=== PATIENT | male | born 1995 | race Caucasian/White ===

== ENCOUNTER 2021-01-08 10:14 | Emergency (ER) | payer SELFPAY ==
--- NOTE | 2021-01-08 10:15 | RT.EKG_ITS ---
APPROVED REPORT Exam: Resting ECG Reason for Exam: chest pain Patient Location: E HR:53 bpm ECG Measurements Heart Rate 53 AXIS MA 146 P 52 QRSd 96 QRS 94 QT 390 T 58 QTc 365 Conclusion Sinus bradycardia...rate< 60
[2021-01-08 10:23] VITALS: BP 112/61; PULSE 61; RESP 16; TEMP 36.1; O2SAT 97
--- NOTE | 2021-01-08 10:55 | W.ED.GENAD ---
Discharge Plan Disposition Patient Disposition: HOME Condition: Stable Discharge Details Clinical Impression: Cough Primary Care Provider: Unknown,Unknown ED Provider: Mor John Home Meds and New Rx's Prescriptions: No Action No Known Home Meds RF: 0 Discharge Instructions Instructions: Acute Cough (ED) Additional Instructions: Your examination is reassuring, you do not have a fever, your lungs are clear, and your oxygen levels are normal. I would strongly recommend that you discontinue vaping. I would also strongly recommend that you continue getting vaccinated. I will test you for Covid, this test typically takes approximately 2-3 days to be resulted and would recommend quarantining until that time. You cannot contract the coronavirus from your girlfriends recent vaccination. Please watch for new or worsening symptoms and return to the ER for any concerns. Otherwise I recommend reaching out your primary care provider Medical Decision Making This is a 25-year-old male, currently vapes daily, concerned that he may have contracted the coronavirus on from his girlfriend after she received the J&J vaccine on . He reports a dry cough, when he coughs he has chest pain and back pain. Otherwise he is asymptomatic. Reports that his work is requiring a Covid test to return to work. He has not taken any medication [id number] for his symptoms. Clinically he appears well, nontoxic, afebrile, O2 sats 97% on room air, lungs clear to auscultation. He speaks in full sentences and does not cough during my HPI or examination. Extremely low suspicion for pneumonia, do not believe a chest x-ray is indicated. We did discuss that he cannot contract the coronavirus from his significant other vaccination, he denies any known exposures. Patient is not vaccinated, and does not want to become vaccinated. Will obtain a Covid send swab. Given his initial presentation of what he described as chest discomfort, an EKG was ordered per protocol however after evaluating the patient extremely low suspicion for ACS, PE, etc. Lab Data Labs: Covid swab pending ECG Data Attestation: I personally reviewed and interpreted this ECG (s) as follows: Interpretation: Please see official report by Dr. Pride. Bradycardia, ventricular rate of 53. No STEMI. HPI General Mode of arrival: ambulatory. Date/Time Provider Initiated Documentation: 01/08/21 10:26. Limitations to Documentation: no limitations. Information obtained by: patient. HPI Narrative: This is a 25-year-old male, current vapes daily, denies significant past medical history, presenting to the ER today requesting a Covid test. Patient states that his girlfriend received the J&J vaccine on , was told that there was a small amount of virus in the vaccine, and he is concerned that because he was with her all day and Sunday that he may have contracted the virus. He reports a dry cough and when he coughs which is worse at night, he has pain in his chest and back. He has not been able to go to work the last 2 days. He denies headache, fever, productive cough, shortness of breath, abdominal pain, nausea, vomiting, pain or swelling in his legs. He has not taken any [id number] medications for his symptoms. Patient has no additional questions or concerns. He is not personally vaccinated and he is not interested in getting vaccinated. Related Data Home Medications Medication Instructions Recorded Confirmed Unknown [No Known Home Meds] 01/08/21 01/08/21 Allergies Allergy/AdvReac Type Severity Reaction Status Date / Time No Known Allergies Allergy Unverified 01/08/21 10:28 General Stated Complaint: RespSymp IGOR: 4 Review of Systems Constitutional Constitutional: Denies fever(s) and Denies headache(s) ENT Ears, Nose, Mouth, and Throat: Denies headache(s), Denies nasal congestion and Denies sore throat Cardiovascular Cardiovascular: Reports chest pain and Denies dyspnea Respiratory Respiratory: Reports cough and Denies dyspnea Gastrointestinal Gastrointestinal: Denies abdominal pain, Denies nausea and Denies vomiting Musculoskeletal Musculoskeletal: Reports back pain Integumentary/Breasts Skin/Breast: Denies rash Neurologic Neurologic: Denies headache(s) [facility] Social History Smoking/Tobacco Use Status: Current every day Tobacco Type: e-cigarettes Smoking risk assessment performed?: Yes Drug use: Daily Substance use type: marijuana Exam Const General: cooperative, healthy appearing, comfortable and no acute distress Orientation: alert, awake and oriented x3 HENMT Head: normal to inspection, normocephalic and atraumatic Mouth: moist mucous membranes Eyes General: appearance normal, both eyes and all related structures Conjunctivae: conjunctivae normal Neck Neck: normal visual inspection, full ROM, no meningeal signs, trachea midline and supple Resp Effort & Inspection: normal respiratory effort and able to speak in complete sentences Auscultation: clear to auscultation bilaterally Cardio Rate: regular rate Rhythm: regular rhythm Skin General skin exam: no rashes or lesions noted Neuro General: patient alert, patient awake, patient oriented x3, moves all extremities and no focal motor deficits Cognition: normal cognition Speech: speech normal Gait: normal gait Sensory Exam: no sensory deficits noted Extrem General: normal to inspection, full ROM, no pedal edema and no calf tenderness Psych Appearance: grossly normal Mental Status: mental status grossly normal Course Vital Signs Vital signs: Vital Signs Temperature 36.1 C L 01/08/21 10:23 Pulse 61 01/08/21 10:23 Respiratory Rate 16 01/08/21 10:23 Blood Pressure 112/61 01/08/21 10:23 Pulse Oximetry 97 01/08/21 10:23 Temperature 36.1 C L 01/08/21 10:23 Temperature Source Temporal Artery Scan 01/08/21 10:23 Pulse 61 01/08/21 10:23 Respiratory Rate 16 01/08/21 10:23 Respiratory Effort Non-Labored 01/08/21 10:29 Respiratory Depth Normal 01/08/21 10:29 Blood Pressure 112/61 01/08/21 10:23 Blood Pressure Position Sitting 01/08/21 10:23 Pulse Oximetry 97 01/08/21 10:23 Oxygen Delivery Method Room Air 01/08/21 10:23 Oxygen Flow Rate 0 01/08/21 10:23 Pain Level 4 01/08/21 10:23
[2021-01-09 15:03] LABS: COVID-19 RT-PCR UVMMC Result Negative (Negative)
--- NOTE | 2021-01-14 10:57 | NUR.NOTE ---
negative covid relayed to pt via phone-pt called for results.Nursing Note:
== END 2021-01-08 11:05 | disposition home or self-care (01) ==
PROVIDERS: Emergency Provider Physician Assistant
DX: R05.9 Cough, unspecified (principal); R07.9 Chest pain, unspecified; Z20.822 Contact with and (suspected) exposure to COVID-19
CPT/HCPCS: 93005; 99283; U0003; 93010

== ENCOUNTER 2021-10-09 08:51 | Emergency (ER) | payer SELFPAY ==
[2021-10-09 09:11] VITALS: BP 126/66; PULSE 88; RESP 16; TEMP 36.7; O2SAT 95
--- NOTE | 2021-10-09 09:17 | ED.GENADUL_ITS ---
Discharge Plan Disposition Patient Disposition: HOME Condition: Improving Discharge Details Clinical Impression: Acute bronchitis with bronchospasm Primary Care Provider: Unknown,Unknown ED Provider: Mark Goncalves Home Meds and New Rx's Prescriptions: New doxycycline hyclate 100 mg capsule 100 mg PO BID 10 Days Qty: 20 0RF prednisone 50 mg tablet 50 mg PO DAILY 5 Days Qty: 5 0RF Discharge Instructions Instructions: Acute Bronchitis (ED) Additional Instructions: You need to decrease use of both smoke and inhaled products. Prednisone once daily until finished. Take the antibiotic doxycycline until finished as well. This medication may make your skin sensitive to bright sunlight. Return to ER for worsening difficulty breathing, development of high persistent fever, or any other acute concerns Medical Decision Making 26-year-old male with 2 to 3 days of cough, congestion, production of sputum. He uses both nicotine vape as well as smokes marijuana. He was around some sick children and took a home COVID test which was negative. He has had a history of using inhalers with previous upper respiratory infections but no ongoing wheeze or difficulty breathing. On exam he is oxygenating normally, speaking in full sentences, does demonstrate slight end expiratory wheeze bilaterally. He is not systemically ill. Do feel he needs to decrease his use of vaping and marijuana. He will benefit from the anti-inflammatory effects of a small burst of steroid, a course of antibiotic, and use of inhaler as needed at home. He understands to avoid nicotine and marijuana products moving forward. HPI General Mode of arrival: ambulatory . Date/Time Provider Initiated Documentation: 10/09/21 08:53 . Limitations to Documentation: no limitations . Information obtained by: patient . History of Present Illness 26 year old M presents to the emergency department with the chief complaint of Cough and posttussive emesis, described as moderate, Quality is described as dull and constant, and is localized to the chest. Patient reports no radiation. Patient started experiencing this minute(s) and it has been constant. No relieving factors improve symptom(s), No exacerbating factors reported . Patient notes cough; denies shortness of breath. Patient did receive the following treatments prior to arrival, none Related Data Home Medications Medication Instructions Recorded Confirmed doxycycline hyclate 100 mg capsule 100 mg PO BID 10 days #20 caps 10/09/21 prednisone 50 mg tablet 50 mg PO DAILY 5 days #5 tabs 10/09/21 Previous Rx's Medication Instructions Recorded doxycycline hyclate 100 mg capsule 100 mg PO BID 10 days #20 caps 10/09/21 prednisone 50 mg tablet 50 mg PO DAILY 5 days #5 tabs 10/09/21 Allergies Allergy/AdvReac Type Severity Reaction Status Date / Time No Known Allergies Allergy Unverified 10/09/21 09:16 General Stated Complaint: Nausea/Vomit/Diar IGOR: 3 Review of Systems Narrative: No chest pain, no syncope, no fever. Smokes marijuana PFSH All Active Problems (Updated 10/09/21 @ 09:27 by Mark Goncalves MD) Cough (Acute) Acute bronchitis with bronchospasm (Acute) Social History Smoking/Tobacco Use Status: Current every day Tobacco Type: e-cigarettes Smoking risk assessment performed?: Yes Drug use: Daily Substance use type: marijuana Do you feel safe at home: Yes Do you feel safe in your relationship?: Yes Exam Narrative Exam Narrative: GEN: awake, alert, oriented 3. Pleasant, well groomed, interactive. HEAD: Normocephalic, atraumatic ENT: Mucous membranes moist, oropharynx unremarkable, External ear exam unremarkable EYES: PERRL, EOMI NECK: Full ROM, no HARSHIL, no menigismus CHEST/RESP: Nontender, faint end expiratory wheeze scattered bilaterally CARDIOVASCULAR: RRR, no murmur, rub dat. 2+ Rad pulse bilateral ABDOMEN: Soft, nontender, no mass. +Bowel sounds EXT: Full ROM, no edema, no rash Neuro: Grossly normal neurologic exam, conversant, interactive. Psych: Speech fluent, thoughts congruent, affect normal Course Vital Signs Vital signs: Vital Signs Temperature 36.7 C 10/09/21 09:11 Pulse 88 10/09/21 09:11 Respiratory Rate 16 10/09/21 09:11 Blood Pressure 126/66 10/09/21 09:11 Pulse Oximetry 95 10/09/21 09:11 Temperature 36.7 C 10/09/21 09:11 Temperature Source Temporal Artery Scan 10/09/21 09:11 Pulse 88 10/09/21 09:11 Respiratory Rate 16 10/09/21 09:11 Respiratory Effort 10/09/21 09:16 Blood Pressure 126/66 10/09/21 09:11 Blood Pressure Position Sitting 10/09/21 09:11 Pulse Oximetry 95 08/14/22 09:11 Oxygen Delivery Method Room Air 10/09/21 09:11 Oxygen Flow Rate 0 10/09/21 09:11 Pain Level 0 10/09/21 09:11 Comment 10/09/21 09:11
[2021-10-09] MEDS: Albuterol HFA 8 GM 60 PUFF INH IH (09:44)
[2021-10-09] MEDS: predniSONE 20 MG TAB 60 MG PO (09:45)
== END 2021-10-09 09:53 | disposition home or self-care (01) ==
PROVIDERS: Emergency Provider Emergency Medicine
DX: J20.9 Acute bronchitis, unspecified (principal)
CPT/HCPCS: 99283; J7512

== ENCOUNTER 2022-03-08 05:26 | Emergency (ER) | payer SELFPAY ==
[2022-03-08 05:30] VITALS: BP 131/56; PULSE 50; RESP 18; TEMP 35.9; O2SAT 96
--- NOTE | 2022-03-08 05:37 | W.ED.GENAD ---
Discharge Plan Disposition Patient Disposition: Home Condition: Good Discharge Details Clinical Impression: Postoperative nausea and vomiting Primary Care Provider: Unknown,Unknown ED Provider: Luis Guzman Home Meds and New Rx's Prescriptions: New ondansetron 4 mg tablet,disintegrating 4 mg PO Q8H Qty: 14 0RF Discharge Instructions Instructions: Acute Nausea and Vomiting (ED) Additional Instructions: At this time your symptoms appear consistent with nausea and vomiting secondary to the anesthesia agent use. Please stick with a bland diet of sips of water, and crackers for the next 24 hours. Take the Zofran as needed. Avoid greasy foods, spicy foods, or tomato-based products. Prescription for antiemetics Zofran has been sent to your pharmacy on file. Medical Decision Making This is a pleasant 27-year-old male with no significant past medical history who presents today for evaluation of nausea. Patient states that yesterday morning he had 3 teeth removed at the dental office. He had anesthesia because of this. After the procedure he was doing fine until last evening when he began to get quite nauseous. He has been vomiting throughout the night, and has had trouble keeping anything down. He denies any significant blood in his vomit. He denies any pain or abdominal pain in general. No other complaints at this time. No other modifying factors. Exam demonstrates a well-appearing male, nontender abdomen, vital signs notably stable. No evidence of an acute surgical abdomen whatsoever. Symptoms appear consistent with post anesthesia nausea. Symptoms inconsistent with severe pancreatitis or acute intra-abdominal surgical pathology. Options were given for oral antiemetics versus IV antiemetics. Patient has notably elected for the oral pathway. We will give Zofran, perform p.o. trial, monitor closely and reassess. 10:17 AM Patient tolerated p.o. trial well. He feels well and would like to go home. Patient will be given Zofran for home use. Discussed red flags for which to return. We have extensively reviewed the treatment plan and discharge instructions with the patient and their family. I have addressed all patient concerns at this time. The patient and family was made aware of what symptoms to monitor for that would warrant a return to the emergency department. Discussed the plan with the patient and family, they demonstrate verbal understanding and agreement with our assessment and plan at this time. The documentation in this chart was dictated using [employer] dictation software. Please excuse any dictation errors. HPI General Date/Time Provider Initiated Documentation: 03/08/22 05:33. HPI Narrative: This is a pleasant 27-year-old male with no significant past medical history who presents today for evaluation of nausea. Patient states that yesterday morning he had 3 teeth removed at the dental office. He had anesthesia because of this. After the procedure he was doing fine until last evening when he began to get quite nauseous. He has been vomiting throughout the night, and has had trouble keeping anything down. He denies any significant blood in his vomit. He denies any pain or abdominal pain in general. No other complaints at this time. No other modifying factors. Related Data Home Medications Medication Instructions Recorded Confirmed ondansetron 4 mg disintegrating 4 mg PO Q8H #14 tabs 03/08/22 tablet Previous Rx's Medication Instructions Recorded ondansetron 4 mg disintegrating 4 mg PO Q8H #14 tabs 03/08/22 tablet Allergies Allergy/AdvReac Type Severity Reaction Status Date / Time No Known Allergies Allergy Unverified 10/09/21 09:16 General Stated Complaint: Nausea/Vomit/Diar IGOR: 4 Review of Systems All systems reviewed & are unremarkable except as noted in HPI and below PFSH All Active Problems (Updated 03/08/22 @ 05:42 by Luis Guzman DO) Cough (Acute) Postoperative nausea and vomiting (Acute) Social History Smoking/Tobacco Use Status: Current every day Tobacco Type: e-cigarettes Smoking risk assessment performed?: Yes Alcohol Intake: never Drug use: Daily Substance use type: marijuana Do you feel safe at home: Yes Do you feel safe in your relationship?: Yes Exam Narrative Exam Narrative: 1.Const: Well-nourished, Well-developed, appearing stated age 2.Eyes: PERRL, no conjunctival injection, and symmetrical lids. 3.ENT: Atraumatic external nose and ears. Dry MM. Neck: Symmetric, trachea midline, No thyromegaly. Postoperative tooth extraction sites are not bleeding. They look well. They are otherwise clean dry and intact. 4.CVS: +S1/S2, No murmurs or gallops. Peripheral pulses 2+ and equal in all extremities. Brisk capillary refill in all extremities. 5.RESP: Unlabored respiratory effort. Clear to auscultation bilaterally. No wheezes rales or rhonchi 6.GI: Soft, Nontender/Nondistended, No hepatosplenomegaly. No guarding or rebound. 7.MSK: Normocephalic/Atraumatic, Extremities w/o deformity or ttp No cyanosis or clubbing, Normal movement of all extremities 8.Skin: Warm, Dry. No rashes or lesions. 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 Sensation grossly intact, no focal neurologic deficits. 10.Psych: (AAO) x3. Appropriate mood and affect Course Vital Signs Vital signs: Vital Signs Temperature 35.9 C L 03/08/22 05:30 Pulse 50 L 03/08/22 05:30 Respiratory Rate 18 03/08/22 05:30 Blood Pressure 131/56 L 03/08/22 05:30 Pulse Oximetry 96 03/08/22 05:30 Temperature 35.9 C L 03/08/22 05:30 Pulse 50 L 03/08/22 05:30 Respiratory Rate 18 03/08/22 05:30 Respiratory Effort 03/08/22 05:33 Blood Pressure 131/56 L 03/08/22 05:30 Blood Pressure Position Sitting 03/08/22 05:30 Pulse Oximetry 96 03/08/22 05:30 Pain Level 0 03/08/22 05:30
[2022-03-08] MEDS: Ondansetron O.D.T. 4 MG TABEF PO (05:43)
[2022-03-08] MEDS: Ondansetron O.D.T. 4 MG TABEF, 3 TABS/BTL PO (06:07)
== END 2022-03-08 06:13 | disposition home or self-care (01) ==
LOC: ER 06:17
PROVIDERS: Emergency Provider Student in an Organized Health Care Education/Training Program
DX: R11.2 Nausea with vomiting, unspecified (principal)
CPT/HCPCS: 99283; 99284

== ENCOUNTER 2024-04-14 07:39 | Emergency (ER) | payer SELFPAY ==
[2024-04-14] VITALS (32 sets, daily range): BP systolic 101–115; BP diastolic 61–72; PULSE 72–122; RESP 14–31; TEMP 36.6–38.8; O2SAT 91–97
--- NOTE | 2024-04-14 08:00 | RT.EKG_ITS ---
APPROVED REPORT Exam: Resting ECG Reason for Exam: SOB Patient Location: E HR:76 bpm ECG Measurements Heart Rate 76 AXIS UT 137 P 64 QRSd 95 QRS 85 QT 369 T 48 QTc 415 Conclusion Sinus rhythm 76 normal axis no stemi
--- NOTE | 2024-04-14 08:03 | ED.GENADUL_ITS ---
Discharge Plan Disposition Patient Disposition: Home Condition: Stable Discharge Details Clinical Impression: Multifocal pneumonia, Cough, Influenza A, Dehydration Primary Care Provider: None,None ED Provider: Tori Ballard Home Meds and New Rx's Prescriptions: New amoxicillin-pot clavulanate 875-125 mg tablet 1 tab PO BID 7 Days Qty: 14 0RF doxycycline monohydrate 100 mg capsule 100 mg PO BID 5 Days Qty: 10 0RF promethazine 6.25 mg/5 mL syrup 12.5 mg PO Q6H PRN (Reason: cough) Qty: 120 0RF prednisone 20 mg tablet 40 mg PO DAILY 4 Days Qty: 8 0RF benzonatate 100 mg capsule 100 mg PO TID PRN (Reason: cough) Qty: 30 0RF ondansetron 4 mg tablet,disintegrating 4 mg PO Q6H PRN (Reason: nausea and vomiting) Qty: 30 0RF Discharge Instructions Instructions: Community-acquired pneumonia in adults Additional Instructions: Your flu test was positive today and your x-ray showed that you have pneumonia on both sides of your lungs You will be discharged home with antibiotics. Please take the full course of the antibiotics You have been discharged with prescription medication for cough and nausea. Please take these as needed Please increase your fluid intake and return to the emergency department if you have persistent vomiting or not tolerating anything by mouth or not tolerating the medications Return to the emergency department if you develop worsening shortness of breath HPI General Date/Time Provider Initiated Documentation: 04/14/24 07:57 . Limitations to Documentation: no limitations . Information obtained by: patient . HPI Narrative: 29-year-old gentleman without significant past medical history presents for evaluation of illness of 2 weeks. He reports that initial symptoms started 2 weeks ago. At that time he had fever chills body aches vomiting. They suspected that he had influenza and tested supportive care at home. The vomiting stopped, but a cough started. And since that time his fianc?e states that he has had persistent fevers. Cough productive of thick mucus. Reports that he frequently coughs until he vomits. He is also vomiting after he is eating. He has persistent shortness of breath and has been having difficulty sleeping. Related Data Home Medications ?Medication ?Instructions ?Recorded ?Confirmed amoxicillin 875 mg-potassium 1 tab PO BID 7 days #14 tabs 04/14/24 clavulanate 125 mg tablet benzonatate 100 mg capsule 100 mg PO TID PRN cough #30 caps 04/14/24 doxycycline monohydrate 100 mg 100 mg PO BID 5 days #10 caps 04/14/24 capsule ondansetron 4 mg disintegrating 4 mg PO Q6H PRN nausea and 04/14/24 tablet vomiting #30 tabs prednisone 20 mg tablet 40 mg (2 x 20 mg) PO DAILY 4 days 04/14/24 #8 tabs promethazine 6.25 mg/5 mL oral 12.5 mg (10 mL) PO Q6H PRN cough 04/14/24 syrup #120 mL Previous Rx's ?Medication ?Instructions ?Recorded amoxicillin 875 mg-potassium 1 tab PO BID 7 days #14 tabs 04/14/24 clavulanate 125 mg tablet benzonatate 100 mg capsule 100 mg PO TID PRN cough #30 caps 04/14/24 doxycycline monohydrate 100 mg 100 mg PO BID 5 days #10 caps 04/14/24 capsule ondansetron 4 mg disintegrating 4 mg PO Q6H PRN nausea and 04/14/24 tablet vomiting #30 tabs prednisone 20 mg tablet 40 mg (2 x 20 mg) PO DAILY 4 days 04/14/24 #8 tabs promethazine 6.25 mg/5 mL oral 12.5 mg (10 mL) PO Q6H PRN cough 04/14/24 syrup #120 mL Allergies Allergy/AdvReac Type Severity Reaction Status Date / Time procaine (From Novocain) Allergy Mild Nausea Verified 04/14/24 07:54 General Stated Complaint: RespSymp IGOR: 4 Exam Narrative Exam Narrative: Review of Systems: All systems reviewed & are unremarkable except as noted in HPI and below Ill-appearing, febrile NCAT Poor oral dentition Erythema of the posterior oropharynx without tonsillar enlargement or exudate Tachycardia no murmur Sat 91% on room air, crackles in bilateral bases Nondistended abdomen Extremities w/o edema no focal neurologic deficits Course Vital Signs Vital signs: Vital Signs Temperature 37.9 C H 04/14/24 07:42 Pulse 122 H 04/14/24 07:42 Respiratory Rate 17 04/14/24 07:42 Blood Pressure 115/67 04/14/24 07:42 Pulse Oximetry 91 L 04/14/24 07:42 Temperature 38.8 C H 04/14/24 07:46 Temperature Source Temporal Artery Scan 04/14/24 07:46 Pulse 122 H 04/14/24 07:46 Respiratory Rate 17 04/14/24 07:46 Respiratory Effort Normal 04/14/24 07:46 Respiratory Depth Normal 04/14/24 07:46 Blood Pressure 115/67 04/14/24 07:46 Blood Pressure Position Sitting 04/14/24 07:46 Pulse Oximetry 91 L 04/14/24 07:46 Oxygen Delivery Method Room Air 04/14/24 07:46 Oxygen Flow Rate 0 04/14/24 07:46 Pain Level 7 04/14/24 07:46 Medical Decision Making Emergent evaluation of acute febrile illness. Initial differential includes viral syndrome, pneumonia, postviral myocarditis.. Patient is febrile tachycardic and overall not well-appearing. Suspect chronic underlying medical condition that has not been previously diagnosed. Will begin fluid resuscitation due to ongoing vomiting, check blood work, chest x-ray. Treat fever and get viral testing. Results reviewed. There is a leukocytosis of 18. There is some mild anemia. 13 and 36, no prior for comparison. He did have some mild hypokalemia at 2.8. This was repleted with an oral dose. No significant change in his creatinine or derangement in his LFTs. Influenza test is positive. Given the duration of symptoms, he is not a candidate for Tamiflu. Chest x-ray reviewed and there does appear to be bilateral infiltrates. Blood cultures and IV antibiotics have been initiated. The patient reports improvement in his respiratory symptoms after breathing treatment. patient is not requiring oxygen support and feels better after IV hydration. Although he does have bilateral infiltrates, it does not appear that there is an indication for hospitalization at this time. Will discharge on antibiotics. Close return precautions advised. I recommend close follow-up with PCP. Quality:SDOH Health Related Social Needs: No Data to Display PFSH All Active Problems (Updated 04/14/24 @ 12:27 by Tori Ballard MD) Dehydration (Acute) Influenza A (Acute) Cough (Acute) Multifocal pneumonia (Acute) Cough (Acute) Social History Smoking/Tobacco Use Status: Former Tobacco Use Smoking risk assessment performed?: Yes Alcohol Intake: never Drug use: Daily Substance use type: marijuana Do you feel safe at home: Yes Do you feel safe in your relationship?: Yes
[2024-04-14 08:50] LABS: Abs Immature Grans 0.17 10^3/uL (0.0-0.06); Absolute Basophil Count 0.17 10^3/uL (0.0-0.2); Absolute Lymphocyte Count 1.42 10^3/uL (1.2-3.4); Absolute Neutrophil Count 15.46 10^3/uL (1.2-6.7); Basophils % 0.9 %; HCT 36.3 % (40.0-50.0); Immature Grans % 0.9 %; Lymphocytes % 7.5 %; MCH 29.2 pg (27.0-33.0); MCHC 35.8 % (32.0-36.0); MCV 82 fL (80-95); MPV 9.8 fL (8.0-11.0); Neutrophils % 81.7 %; Platelet Count 498 10^3/uL (130-400); RBC 4.45 10^6/uL (4.36-5.78); RDW 12.6 % (11.8-14.1); RDW-SD 37.1 fL; WBC 18.92 10^3/uL (4.4-10.8)
[2024-04-14] MEDS: Normal Saline 1,000 ML 1000 ML IV (08:55)
[2024-04-14] MEDS: Albuterol/Ipratropium 3 ML UPD VIAL UPD (08:56)
[2024-04-14] MEDS: Ondansetron 4 MG/2 ML VIAL IVP (08:56)
[2024-04-14] MEDS: ACETAMINOPHEN 1,000 MG/100 ML BAG 400 MG IVPB (08:56)
[2024-04-14] MEDS: Normal Saline Flush 10 ML SYR IVP (08:57)
[2024-04-14] MEDS: methylPREDNISolone SUCC 125 MG VIAL IVP (08:57)
[2024-04-14 09:12] LABS: ALT 38 U/L (16-63); AST 24 U/L (15-37); Albumin 3.1 g/dL (3.4-5.0); Alkaline Phosphatase 58 U/L (46-116); Anion Gap 12.9 mmol/L (3-11); BUN 11 mg/dL (7-18); Bilirubin, Total 0.69 mg/dL (0.2-1.0); CO2 26.1 mmol/L (21.0-32.0); CREATININE 1.1 mg/dL (0.70-1.30); Calcium 9.8 mg/dL (8.5-10.1); Chloride 93 mmol/L (98-107); Estimated GFR 94.36 (mL/min/1.73m2); Glucose 127 mg/dL (74-106); Sodium 132 mmol/L (136-145); Total Protein 9.2 g/dL (6.4-8.2)
[2024-04-14 09:15] LABS: NT-proBNP 133 pg/mL (<300)
[2024-04-14 09:21] LABS: Potassium 2.8 mmol/L (3.5-5.1)
[2024-04-14 09:25] LABS: Diff Comment Diff Reviewed
[2024-04-14 09:27] LABS: COVID-19 PCR Negative (Negative); Influenza A PCR Positive (Negative); Influenza B PCR Negative (Negative); RSV PCR Negative (Negative)
[2024-04-14 09:29] LABS: Source Nasopharynx
[2024-04-14] MEDS: Potassium Chloride Liquid 20 MEQ PKT 40 MEQ PO (10:00)
--- NOTE | 2024-04-14 10:00 | DI.RAD_ITS ---
Exam(s) XR CHEST 2V PA LATERAL EXAM: XR CHEST 2V PA LATERAL CLINICAL HISTORY: SOB TECHNIQUE: 2D digital imaging was performed of the chest. Two images were obtained. PA and lateral views were obtained. COMPARISON: No exams were available for comparison FINDINGS: MEDIASTINUM: There is prominence of the hilum, left greater than right. This may represent adenopath y, which is likely reactive. HEART: Normal. PULMONARY VASCULATURE: Normal. LUNGS: There is a multifocal pneumonia present. PLEURAL SPACE: No pleural effusion or pneumothorax. BONE:Within normal limits for the patient's age. OTHER FINDINGS:Normal. IMPRESSION: Multifocal infiltrates suspicious for pneumonia. DATA REPOSITORY: RADIATION DOSE DELIVERED:
[2024-04-14] MEDS: cefTRIAXone 1 GM/50 ML BAG IVPB (11:06)
[2024-04-14] MEDS: AZITHROMYCIN 500 MG in Normal Saline 250 ML 250 MG IVPB (11:32)
== END 2024-04-14 13:00 | disposition home or self-care (01) ==
PROVIDERS: Emergency Provider Emergency Medicine
DX: J10.00 Influenza due to other identified influenza virus with unspecified type of pneumonia (principal); E86.0 Dehydration; D64.9 Anemia, unspecified; E87.6 Hypokalemia; Z87.891 Personal history of nicotine dependence
CPT/HCPCS: 36415; 80053; 87040; 87637; 93005; 94640; 96365; 96375; 99285; 71046; 83880; 85025; 93010; J0131; J0456; J0696; J2405; J2919; J7620

== ENCOUNTER 2024-09-06 17:30 | Emergency (ER) | payer SELFPAY ==
[2024-09-06 17:31] VITALS: PULSE 60; RESP 18; TEMP 36.7; O2SAT 96
--- NOTE | 2024-09-06 17:46 | W.ED.GENAD ---
Discharge Plan Disposition Patient Disposition: Home Discharge Details Clinical Impression: Dental caries Primary Care Provider: None,None ED Provider: Marleni Cuadra Home Meds and New Rx's Prescriptions: New amoxicillin-pot clavulanate 875-125 mg tablet 1 tab PO BID Qty: 12 0RF chlorhexidine gluconate 0.12 % mouthwash 15 ml PO BID Qty: 120 0RF Rx Instructions: Swish for 30 seconds with 1 capful (15 mL) after toothbrushing, then spit. Repeat twice daily (morning and evening) until symptoms resolve No Action promethazine 6.25 mg/5 mL syrup 12.5 mg PO Q6H PRN (Reason: cough) Qty: 120 0RF benzonatate 100 mg capsule 100 mg PO TID PRN (Reason: cough) Qty: 30 0RF ondansetron 4 mg tablet,disintegrating 4 mg PO Q6H PRN (Reason: nausea and vomiting) Qty: 30 0RF Discharge Instructions Instructions: Dental Pain ED Additional Instructions: Please reach out to local dentists/your dentist for reassessment/definitive management. A referral to oral surgery may be needed for tooth extraction. You are being prescribed an antibiotic called Augmentin. Please take the full course as prescribed. I recommend that you use this with the mouthwash prescribed to help treat the dental infection. You may continue to use Tylenol 1000 mg every 6 hours (no more than 4 times a day) and ibuprofen 800 mg every 8 hours (no more than 3 times a day), along with Orajel (according to package instructions) and ice packs for pain control. Return to emergency care if you develop new difficulty swallowing, fever/chills/general malaise, difficulty fully opening your mouth, swelling inside your mouth such as under your tongue, significant swelling on one side of your neck, severe headaches, facial droop, or if you are very worried you need to be rechecked again immediately Discharge Data Discharge Date/Time-TO BE ENTERED AT DEPARTURE: 09/06/24 18:10 HPI General Date/Time Provider Initiated Documentation: 09/06/24 17:46. HPI Narrative: Mor is a 29-year-old male with history of extensive dental work and tooth extractions who presents to the emergency department today for evaluation of right lower molar pain after cracking his tooth. Intermittent tooth pain for several months, worsened after chipping tooth on 09/01/2024. Reports pus drainage and unpleasant taste. Denies associated fever/chills, unusual headaches, vision changes, difficulty opening his mouth, difficulty swallowing, change in p.o. intake. Using Tylenol, ibuprofen, and Orajel for temporary relief. No antibiotics in past 3 months. Denies history of heart, lung problems, or diabetes. Allergic to Novocaine. Does smoke marijuana Related Data Home Medications ?Medication ?Instructions ?Recorded ?Confirmed benzonatate 100 mg capsule 100 mg PO TID PRN cough #30 caps 04/14/24 09/06/24 Held on 09/06/24. Instructions: Pt Stopped/Never Started ondansetron 4 mg disintegrating 4 mg PO Q6H PRN nausea and 04/14/24 09/06/24 tablet vomiting #30 tabs Held on 09/06/24. Instructions: Pt Stopped/Never Started promethazine 6.25 mg/5 mL oral 12.5 mg (10 mL) PO Q6H PRN cough 04/14/24 09/06/24 syrup #120 mL Held on 09/06/24. Instructions: Pt Stopped/Never Started amoxicillin 875 mg-potassium 1 tab PO BID #12 tabs 09/06/24 clavulanate 125 mg tablet chlorhexidine gluconate 0.12 % 15 ml PO BID #120 mL 09/06/24 mouthwash Previous Rx's ?Medication ?Instructions ?Recorded benzonatate 100 mg capsule 100 mg PO TID PRN cough #30 caps 04/14/24 Held on 09/06/24. Instructions: Pt Stopped/Never Started ondansetron 4 mg disintegrating 4 mg PO Q6H PRN nausea and 04/14/24 tablet vomiting #30 tabs Held on 09/06/24. Instructions: Pt Stopped/Never Started promethazine 6.25 mg/5 mL oral 12.5 mg (10 mL) PO Q6H PRN cough 04/14/24 syrup #120 mL Held on 09/06/24. Instructions: Pt Stopped/Never Started amoxicillin 875 mg-potassium 1 tab PO BID #12 tabs 09/06/24 clavulanate 125 mg tablet chlorhexidine gluconate 0.12 % 15 ml PO BID #120 mL 09/06/24 mouthwash Allergies Allergy/AdvReac Type Severity Reaction Status Date / Time procaine (From Novocain) Allergy Mild Nausea Verified 09/06/24 17:36 General Stated Complaint: DentalOral IGOR: 4 Exam Narrative Exam Narrative: General Appearance: Normal. Patient is alert and oriented, no acute distress Vital signs: Within normal limits. HEENT: Extensive dental decay noted. Cracked tooth noted to right lower molar, mild surrounding gingival erythema and edema. No swelling under tongue concerning for Camilo's angina. No trismus. No facial swelling noted Lymphatic: No cervical or submandibular lymphadenopathy. Neurological: Cranial nerves II-XII intact, no facial asymmetry, normal shoulder shrug. PERRL, EOMs intact Skin: Warm and dry, no rash. Psychiatric: Normal. Course Vital Signs Vital signs: Vital Signs Temperature 36.7 C 09/06/24 17:31 Pulse 60 09/06/24 17:31 Respiratory Rate 18 09/06/24 17:31 Pulse Oximetry 96 09/06/24 17:31 Temperature 36.7 C 09/06/24 17:31 Temperature Source Oral 09/06/24 17:31 Pulse 60 09/06/24 17:31 Respiratory Rate 18 09/06/24 17:31 Pulse Oximetry 96 09/06/24 17:31 Oxygen Delivery Method Room Air 09/06/24 17:31 Oxygen Flow Rate 0 09/06/24 17:31 Pain Level 9 09/06/24 17:31 Medical Decision Making Initial Assessment: 29-year-old male with tooth pain after cracking tooth on 09/02/2024. History of intermittent pain for months, worsened after chipping tooth. Reports pus drainage and foul taste. No systemic symptoms or lymph node swelling. Likely dental infection due to cracked tooth. ED Course: - Augmentin 875 mg BID for 10 days - Chlorhexidine mouthwash - Continue Tylenol, ibuprofen, Orajel, ice pack - Follow up with dentist and oral surgeon Final Assessment: Treated likely dental infection with antibiotics and supportive care. Patient is overall very well-appearing. No signs of systemic infection or deep space infection requiring emergent diagnostic imaging or blood work at this time. Advised to monitor for systemic involvement. Clinical Impression: - Dental infection Disposition: - Discharge home with antibiotics - Follow-Up: Consult dentist and oral surgeon Patient Education: Reviewed discharge instructions with patient, including medication use, symptomatic management, signs of systemic infection, and follow-up care. He voices agreement with plan of care. Patient consented to the use of [facility] PFSH All Active Problems (Updated 09/06/24 @ 17:58 by Marleni Brandon) Dental caries (Acute) Cough (Acute) Social History Smoking/Tobacco Use Status: Former Tobacco Use Smoking risk assessment performed?: Yes Alcohol Intake: never Drug use: Daily Substance use type: marijuana Do you feel safe at home: Yes Do you feel safe in your relationship?: Yes
[2024-09-06] MEDS: Amox. 875/Clav. 125, 2 TABS/BTL 1 TAB PO (18:04)
== END 2024-09-06 18:10 | disposition home or self-care (01) ==
PROVIDERS: Emergency Provider Nurse Practitioner Family
DX: K04.7 Periapical abscess without sinus (principal)
CPT/HCPCS: 99283 ×2

== ENCOUNTER 2024-12-12 16:02 | Emergency (ER) | payer SELFPAY ==
[2024-12-12 16:15] VITALS: BP 131/59; PULSE 68; RESP 16; TEMP 36.9; O2SAT 98
--- NOTE | 2024-12-12 16:26 | ED.GENADUL_ITS ---
Discharge Plan Disposition Patient Disposition: Home Condition: Stable Discharge Details Clinical Impression: Tinea Primary Care Provider: None,None ED Provider: Daniela Hill Home Meds and New Rx's Prescriptions: New clotrimazole 1 % ointment 1 applic topical BID 7 Days Qty: 56.7 0RF Rx Instructions: Apply to the affected area twice daily for the next 7 days Discharge Instructions Instructions: Ringworm, athlete's foot, and jock itch Additional Instructions: Please apply antifungal twice daily the next 7 to 10 days. Keep clean and dry. Follow up with primary care provider in 3-5 days. Return to ED sooner if any worsening or concerns. Referrals: Primary Care Provider [Outside] - 1 week HPI General Mode of arrival: ambulatory . Date/Time Provider Initiated Documentation: 12/12/24 16:19 . Limitations to Documentation: no limitations . Information obtained by: patient, RN notes reviewed and old records reviewed . HPI Narrative: 29 year old male presents to the ER with a cc of left arm rash x 1 month. Began on the anterior aspect of his forearm now has spread. Appears confluent, red, raised with scaly surface cconsistent with a tinea infection. Has been trying Eucerin eczema lotion with little to no relief. Related Data Home Medications ?Medication ?Instructions ?Recorded ?Confirmed clotrimazole 1 % topical ointment 1 applic topical BID Tinea 7 days 12/12/24 #56.7 grams Previous Rx's ?Medication ?Instructions ?Recorded clotrimazole 1 % topical ointment 1 applic topical BID Tinea 7 days 12/12/24 #56.7 grams Allergies Allergy/AdvReac Type Severity Reaction Status Date / Time procaine (From Novocain) Allergy Mild Nausea Verified 12/12/24 16:16 General Stated Complaint: RashLesion IGOR: 4 Review of Systems Integumentary/Breasts Skin/Breast: Reports as per HPI and Reports rash Exam Skin Rashes: rashes noted plaques left anterior forearm arrangement confluent and grouped, borders irregular, color red and surface flaking; fluctuant not assessed Course Vital Signs Vital signs: Vital Signs Temperature 36.9 C 12/12/24 16:15 Pulse 68 12/12/24 16:15 Respiratory Rate 16 12/12/24 16:15 Blood Pressure 131/59 L 12/12/24 16:15 Pulse Oximetry 98 12/12/24 16:15 Temperature 36.9 C 12/12/24 16:15 Pulse 68 12/12/24 16:15 Respiratory Rate 16 12/12/24 16:15 Blood Pressure 131/59 L 12/12/24 16:15 Pulse Oximetry 98 12/12/24 16:15 Pain Level 0 12/12/24 16:15 Medical Decision Making Differential diagnosis include nominative to dermatitis, tinea, viral eruption. Do suspect this is fungal in nature. Will give clotrimazole and instruct on home care and follow-up. This text was generated using [employer] system, please disregard any oddities of phrase or misspellings. PFSH All Active Problems (Updated 12/12/24 @ 16:29 by Daniela Hill NP) Tinea (Acute) Cough (Acute) Social History Smoking/Tobacco Use Status: Former Tobacco Use Smoking risk assessment performed?: Yes Alcohol Intake: never Drug use: Daily Substance use type: marijuana Do you feel safe at home: Yes Do you feel safe in your relationship?: Yes
[2024-12-12] MEDS: Clotrimazole 1% 15 GM TUBE TP (16:50)
== END 2024-12-12 16:52 | disposition home or self-care (01) ==
PROVIDERS: Emergency Provider Registered Nurse Emergency
DX: B35.8 Other dermatophytoses (principal)
CPT/HCPCS: 99283 ×2